=== PATIENT | female | born 1990 | race Caucasian/White ===

== ENCOUNTER → 2022-08-21 07:24 | Outpatient (CLI) | payer BC, SELFPAY ==
--- NOTE | ~2022-08-21 | US_ITS ---
EXAMINATION: US soft tissue head and neck DATE: 08/21/2022 07:50 INDICATION: Cervical lymphadenopathy. TECHNIQUE: Multiple grayscale and Doppler ultrasound images of the head and neck were obtained. COMPARISON: None FINDINGS: There are 2 normal lymph nodes involving left parotid gland. IMPRESSION: 1. No abnormal mass or lymphadenopathy in the patient's area of concern at the left jawline. Reviewed, dictated and finalized at location A.
== END ==
PROVIDERS: PCP Nurse Practitioner Family; Visit Provider Nurse Practitioner Family
DX: R59.0 Localized enlarged lymph nodes (principal)
CPT/HCPCS: 76536